=== PATIENT | female | born 1965 | race Caucasian/White ===

== ENCOUNTER 2016-12-26 14:40 | Emergency (ER) | payer BC ==
[~2016-12-26] VITALS: Ht 165.1 cm; Wt 98.0 kg
[~2016-12-26 14:40] MED LIST: ASPI81TA82 PO; CYCL-36 PO; KRIL300C3 PO; NEUR300C PO; PRIL20CA PO; PROM25TA5 PO; REST7.5C PO; ROSU40 PO; SUCR1TAB PO; TRAM100T19 PO; TRAZ50TA4 PO; VITATAB25 PO; XANA0.5T PO
[2016-12-26 14:47] VITALS: BP 152/73; PULSE 81; RESP 17; TEMP 97.8; O2SAT 98
[2016-12-26] MEDS ORDERED: SODIUM CHLOR 0.9% 1000 ML INJ 1,000 ML IV SCH (15:06)
[2016-12-26 15:09] VITALS: RESP 18; O2SAT 98
[2016-12-26] MEDS: SODIUM CHLORIDE 0.9% FLUSH 10 ML FLUSH IVF PRN ×2 (15:14→16:16)
--- NOTE | 2016-12-26 15:32 | PD ---
HPI Chief Complaint: Bleeding Time Seen by Provider: 15:20 Travel History International Travel<30 days: No Contact w/Intl Traveler<30days: No Traveled to known affect area: No History of Present Illness HPI 51 year old female presents to the emergency department for evaluation of rectal /vaginal bleeding that started last night. Patient has history of surgery for occluded radial artery, possible occluded left carotid. She had surgery done by a physician at [facility] last year. She was originally placed on Coumadin after surgery, but states she was unable to get her INR regulated. She then was switched to Xarelto. In August 2015, she had episode of large vaginal bleeding while on Xarelto. She was since taken off of Xarelto. She states that she saw Dr. Rodrigues done here, vascular surgeon, but is now switching to Dr. Méndez. She has not yet seen Dr. Méndez, but that all her paperwork sent to him. She states that she called her vascular surgeon at [facility] who then placed her back on Xarelto approximately 5-6 weeks ago. She states that she started what she thinks was rectal and vaginal bleeding last night. Patient states she had an ultrasound done by Dr. Sharp after last vaginal bleeding and nothing was found. The patient also reports pain behind her left eye that has been ongoing for approximately 2 weeks. She has an appointment to her eye doctor for this. PFSH Past Medical History Hx Anticoagulant Therapy: No (XARELTO) Arthritis: Yes (Hips and lower back ) Asthma: Yes Autoimmune Disease: No Blood Disorders: No Anxiety: Yes Depression: No Heart Rhythm Problems: No Cancer: No Cardiovascular Problems: Yes High Cholesterol: Yes Chemotherapy: No Chest Pain: No Congestive Heart Failure: No COPD: No Cerebrovascular Accident: Yes Diabetes: No Diminished Hearing: No Deep Vein Thrombosis: Yes Endocrine: No Gastrointestinal Disorders: Yes GERD: No Glaucoma: No Genitourinary: No Headaches: No Hepatitis: No Hiatal Hernia: No Hypertension: No Immune Disorder: No Kidney Stones: No Musculoskeletal: Yes (Lump in left wrist in October 2013) Neurologic: Yes Psychiatric: Yes Reproductive: No Respiratory: Yes Immunizations Current: No Migraines: No Myocardial Infarction: No Radiation Therapy: No Renal Failure: No Seizures: Yes (Suffered childhood epilepsy) Sickle Cell Disease: No Sleep Apnea: No Thyroid Disease: No Ulcer: Yes (ulcerative Colitis /GASTROPARESIS) Tetanus Vaccination: > 5 Years Influenza Vaccination: No ?: Not Menopausal: Yes : 4 Para: 3 Miscarriage: 1 : 0 Dilation and Curettage (D&C): Yes Past Surgical History Abdominal Surgery: No AICD: No Arteriovenous Shunt: No Cardiac Surgery: No Coronary Artery Bypass Graft: Yes (x 2 ) Ear Surgery: No Endocrine Surgery: No Eye Surgery: No Genitourinary Surgery: No Gynecologic Surgery: No Insulin Pump: No Joint Replacement: No Neurologic Surgery: No Oral Surgery: Yes (Complete teeth removal in 2007) Pacemaker: No Thoracic Surgery: No Tonsillectomy: Yes Other Surgery: Yes Social History Alcohol Use: No (PT DENIES) Tobacco Use: Yes (1/2 CIG A DAY) Substance Use: No (PT DENIES) Allergies-Medications (Allergen,Severity, Reaction): Coded Allergies: Penicillin (Verified Allergy, Unknown, RASH, 12/26/16) Reported Meds & Prescriptions Reported Meds & Active Scripts Active Reported Trazodone (Trazodone HCl) 100 Mg Tablet 100 Mg PO HS Temazepam 15 Mg Cap 15 Mg PO HS PRN Omeprazole 20 Mg Tab 20 Mg PO DAILY Vitamin D-[address] (Cholecalciferol) 1,000 Unit Tab 1,000 Units PO DAILY Atorvastatin (Atorvastatin Calcium) 20 Mg Tab 20 Mg PO HS Sucralfate 1 Gm Tab 1 Gm PO QID on empty stomach Potassium Chloride ER (Potassium Chloride) 20 Meq Tab 20 Meq PO DAILY Gabapentin 300 Mg Cap 300 Mg PO QID Tizanidine (Tizanidine HCl) 4 Mg Tab 4 Mg PO QID Tigan (Trimethobenzamide HCl) 300 Mg Cap 300 Mg PO TID PRN Aspirin Low Dose (Aspirin) 81 Mg Chew 81 Mg PO DAILY Review of Systems Except as stated in HPI: all other systems reviewed are Neg Physical Exam Narrative GENERAL: Well-nourished, well-developed female patient, afebrile. SKIN: Focused skin assessment warm/dry. HEAD: Normocephalic. Atraumatic. EYES: No scleral icterus. No injection or drainage. NECK: Supple, trachea midline. No JVD or lymphadenopathy. CARDIOVASCULAR: Regular rate and rhythm without murmurs, gallops, or rubs. RESPIRATORY: Breath sounds equal bilaterally. No accessory muscle use. Lungs sounds are clear to auscultation GASTROINTESTINAL: Abdomen soft, non-tender, nondistended. MUSCULOSKELETAL: No cyanosis, or edema. BACK: Nontender without obvious deformity. No CVA tenderness. Patient has blood noted to be some bleeding in her vaginal canal. Unsure if patient is having rectal bleed as blood could be coming from the vaginal and deep into the rectum. This exam was done with nurse at bedside. Data Data Last Documented VS Vital Signs Date Time Temp Pulse Resp B/P Pulse Ox O2 Delivery O2 Flow Rate FiO2 12/26/16 17:00 78 16 148/83 99 Room Air 12/26/16 14:47 97.8 Orders Complete Blood Count With Diff (12/26/16 15:06) Comprehensive Metabolic Panel (12/26/16 15:06) Prothrombin Time / Inr (Pt) (12/26/16 15:06) Act Partial Throm Time (Ptt) (12/26/16 15:06) Urinalysis - C+S If Indicated (12/26/16 15:06) Type And Screen (12/26/16 15:06) Ecg Monitoring (12/26/16 15:06) Iv Access Insert/Monitor (12/26/16 15:06) Oximetry (12/26/16 15:06) Sodium Chlor 0.9% 1000 Ml Inj (Ns 1000 M (12/26/16 15:06) Sodium Chloride 0.9% Flush (Ns Flush) (12/26/16 15:15) Ct Brain W/O Iv Contrast(Rout) (12/26/16 ) Us Pelvis Comp Awning Hanger/Non-Preg (12/26/16 ) Urine Culture (12/26/16 16:30) Labs Laboratory Tests Test 12/26/16 12/26/16 15:10 16:30 White Blood Count 11.4 TH/MM3 Red Blood Count 4.86 MIL/MM3 Hemoglobin 14.6 GM/DL Hematocrit 44.5 % Mean Corpuscular Volume 91.6 FL Mean Corpuscular Hemoglobin 30.0 PG Mean Corpuscular Hemoglobin 32.7 % Concent Red Cell Distribution Width 13.4 % Platelet Count 286 TH/MM3 Mean Platelet Volume 8.9 FL Neutrophils (%) (Auto) 55.8 % Lymphocytes (%) (Auto) 38.5 % Monocytes (%) (Auto) 4.3 % Eosinophils (%) (Auto) 0.8 % Basophils (%) (Auto) 0.6 % Neutrophils # (Auto) 6.4 TH/MM3 Lymphocytes # (Auto) 4.4 TH/MM3 Monocytes # (Auto) 0.5 TH/MM3 Eosinophils # (Auto) 0.1 TH/MM3 Basophils # (Auto) 0.1 TH/MM3 CBC Comment DIFF FINAL Differential Comment Prothrombin Time 11.0 SEC Prothromb Time International 1.0 RATIO Ratio Activated Partial 22.9 SEC Thromboplast Time Blood Type A POSITIVE Antibody Screen NEGATIVE Urine Color RED Urine Turbidity HAZY Urine pH 5.5 Urine Specific [place] 1.022 Urine Protein 30 mg/dL Urine Glucose (UA) NEG mg/dL Urine Ketones NEG mg/dL Urine Occult Blood LARGE Urine Nitrite NEG Urine Bilirubin NEG Urine Urobilinogen LESS THAN 2.0 MG/DL Urine Leukocyte Esterase TRACE Urine RBC /hpf Urine WBC 9 /hpf Urine Squamous Epithelial 2 /hpf Cells Urine Amorphous Sediment RARE Urine Bacteria MANY /hpf Urine Mucus FEW /lpf Microscopic Urinalysis Comment CULTURE INDICATED Sodium Level 143 MEQ/L Potassium Level 3.9 MEQ/L Chloride Level 108 MEQ/L Carbon Dioxide Level 25.4 MEQ/L Anion Gap 10 MEQ/L Blood Urea Nitrogen 7 MG/DL Creatinine 0.64 MG/DL Estimat Glomerular Filtration 97 ML/MIN Rate Random Glucose 91 MG/DL Calcium Level 8.7 MG/DL Total Bilirubin 0.4 MG/DL Aspartate Amino Transf 17 U/L (AST/SGOT) Alanine Aminotransferase 23 U/L (ALT/SGPT) Alkaline Phosphatase 83 U/L Total Protein 7.5 GM/DL Albumin 3.7 GM/DL MDM Medical Decision Making Medical Screen Exam Complete: Yes Emergency Medical Condition: Yes Medical Record Reviewed: Yes Interpretation(s) Pelvic US - No acute disease. CT brain -CONCLUSION: Unremarkable study. Differential Diagnosis coagulopathy vs. intracranial abnormality vs. medication reaction vs. anemia Narrative Course 51-year-old female presents to the emergency department for evaluation of vaginal, possible rectal bleeding that started last night. She was resumed on her Cymbalta approximate 5-6 weeks ago. She reports large vaginal bleeding on Xarelto in August 2015. CBC, CMP, PTT, PTT/INR, UA, type and screen are ordered and pending. CT of the brain and pelvic ultrasound are ordered and pending. My attending physician, Dr. Hernandez, contacted Dr. Méndez who will, and see the patient. Normal saline [address] Méndez was the patient in the ED and stated that Xarelto could be stopped for a short time to control bleeding. CBC shows leukocytosis of 11.4, normal hemoglobin 14.6, hematocrit 44.5. CMP shows no acute abnormality. Coags show no acute abnormality. UA shows large occult blood, trace leukocyte esterase, 9 WBC, culture indicated. CT of the brain is unremarkable. Pelvic US shows no acute disease. I attempted to contact the patient's venetian blind tape cutter, Dr. Sharp, but was unable to get him. I spoke to the OB hospitalist intermission coordinator, Dr. Gibson, who states I should get a hold of Dr. Sharp as that is the patient's venetian blind tape cutter. He states she may need endometrial ablation due to bleeding. I spoke to Dr. Smith, who is intermission coordinator for Dr. Sharp. She states that the patient should comment to the office tomorrow and will most likely need outpatient endometrial ablation. She states that the patient should call first thing in the morning to be seen tomorrow. She states that she will let Dr. Sharp know as well. I discussed the findings with the patient. She will call Dr. Sharp's office in the morning and be seen tomorrow. She is return for any acute worsening of symptoms. I'll discharge patient prescription for Macrobid for UTI. She verbalizes agreement and understanding. The patient was discharged in stable condition with instructions, including return instructions and follow up instructions. Diagnosis Primary Impression: Abnormal vaginal bleeding Additional Impression: Urinary tract infection Qualified Code: N30.01 - Acute cystitis with hematuria Referrals: Temo Sharp MD 1 day Patient Instructions: General Instructions, Urinary Tract Infection in Women ( ED) Additional Instructions: Take antibiotic as directed until gone Call Dr. Sharp's office first thing in the morning. Please let them know that know that you were seen in the emergency department and need a same day appointment. Return to the emergency department for any acute worsening of symptoms. Med/Other Pt SpecificInfo: Prescription(s) given Scripts Nitrofurantoin Monohydrate Macrocrystals (Macrobid)100 Mg [id number] Mg PO BID 7 Days Ref 0 Prov:Muna Archer 12/26/16 Disposition: DISCHARGE HOME Condition: Stable Muna Archer Dec 26, 2016 15:32
[2016-12-26] MEDS ORDERED: ASPI81CH37 PO (15:46)
[2016-12-26] MEDS ORDERED: TIZA4TAB PO (15:46)
[2016-12-26] MEDS ORDERED: VITATAB25 PO (15:46)
[2016-12-26] MEDS ORDERED: GABA300C5 PO (15:46)
[2016-12-26] MEDS ORDERED: SUCR1TAB PO (15:46)
[2016-12-26] MEDS ORDERED: ATOR20TA15 PO (15:46)
[2016-12-26] MEDS ORDERED: TIGA300C2 PO (15:46)
[2016-12-26] MEDS ORDERED: POTA-163 PO (15:46)
[2016-12-26] MEDS ORDERED: OMEP20TA PO (15:47)
[2016-12-26] MEDS ORDERED: TRAZ100T6 PO (15:48)
[2016-12-26] MEDS ORDERED: TEMA15CA PO (15:48)
[2016-12-26 16:06] LABS: AUTOMATED NEUTROPHIL # 6.4 TH/MM3 (1.8-7.7); BASOPHIL # 0.1 TH/MM3 (0-0.2); BASOPHIL % 0.6 % (0.0-2.0); EOSINOPHIL # 0.1 TH/MM3 (0-0.4); EOSINOPHIL % 0.8 % (0.0-4.0); HEMATOCRIT 44.5 % (35.0-46.0); HEMO FLAGS DIFF FINAL; LYMPH % 38.5 % (9.0-44.0); LYMPHOCYTE # 4.4 TH/MM3 (1.0-4.8); MEAN CELL VOLUME 91.6 FL (80.0-100.0); MEAN CORPUSCULAR HGB CONC 32.7 % (32.0-36.0); MONO % 4.3 % (0.0-8.0); NEUT % 55.8 % (16.0-70.0); PLATELET COUNT 286 TH/MM3 (150-450); RED BLOOD COUNT 4.86 MIL/MM3 (4.00-5.30); RED CELL DISTRIBUTION WIDTH 13.4 % (11.6-17.2); WHITE BLOOD COUNT 11.4 TH/MM3 (4.0-11.0)
[2016-12-26 16:37] LABS: APTT (PATIENT) 22.9 SEC (24.3-30.1)
[2016-12-26 16:41] LABS: ALKALINE PHOSPHATASE 83 U/L (45-117); TOTAL BILIRUBIN ADULT 0.4 MG/DL (0.2-1.0)
--- NOTE | 2016-12-26 16:53 | PD.VS.CON ---
History of Present Illness Chief Complaint: vaginal bleeding and systemic anticoagulation Consult Requested by: Dr. Hernandez, ED History of Present Illness 51 yo female previously well known to me with a history of LUE ischemia of unclear etiology. While at [facility], she underwent a L carotid-brachial bypass using GSV on 04/07/14 and then a graft thrombectomy and jump graft to the ulnar artery using GSV 4 days later. Ultimately al of this failed and an angiogram on Jul 07, 2014 showed patent L SCA to the vertebral artery, but then only collaterals until the proximal forearm but 3 vessels in distal forearm. From an arm standpoint, she has intermittent pain but no motor dysfunction and it sounds like no true rest pain. Her last WBI was 0.5. Her discomfort is controlled with neurontin. Most recently, she has had significant vaginal bleeding and this is the reason she presented to the ED. I was called by the ED to ask about cessation of anticoagulation. Past/Family/Social History Past Medical History likely hypercoagulable state B12 deficiency ? vision loss (not CVA) Past Surgical History L UE bypasses as above Social History nonsmoker Family History [place] Home Medications Reported Medications Trazodone 100 Mg [id number] Mg PO HS #30 TAB Ref 0 12/26/16 Temazepam 15 Mg Cap15 Mg PO HS PRN (INSOMNIA) #30 CAP Ref 0 12/26/16 Omeprazole 20 Mg Tab20 Mg PO DAILY #30 TAB Ref 0 12/26/16 Cholecalciferol (Vitamin D-[address])1,000 Unit Tab1,000 Units PO DAILY # 1 BOTTLE Ref 0 12/26/16 Atorvastatin 20 Mg Tab20 Mg PO HS #30 TAB Ref 0 12/26/16 Sucralfate 1 Gm Tab1 Gm PO QID #120 TAB Ref 0 on empty stomach 12/26/16 Potassium Chloride ER 20 Meq Tab20 Meq PO DAILY #30 TAB Ref 0 12/26/16 Gabapentin 300 Mg [id number] Mg PO QID #90 CAP Ref 0 12/26/16 Tizanidine 4 Mg Tab4 Mg PO QID Ref 0 12/26/16 Trimethobenzamide (Tigan)300 Mg [id number] Mg PO TID PRN (NAUSEA OR VOMITING) Ref 0 12/26/16 Aspirin (Aspirin Low Dose)81 Mg Chew81 Mg PO DAILY Ref 0 12/26/16 Coded Allergies: Penicillin (Verified Allergy, Unknown, RASH, 12/26/16) Review of Systems Eyes: COMPLAINS OF: Blurred vision, Vision loss Musculoskeletal: COMPLAINS OF: Joint Swelling Psychiatric: COMPLAINS OF: Anxiety Physical Exam Vitals/I&O Date Time Temp Pulse Resp B/P Pulse Ox O2 Delivery O2 Flow Rate FiO2 12/26/16 15:09 18 98 Room Air 12/26/16 15:05 87 18 98 Room Air 12/26/16 14:47 97.8 81 17 152/73 98 Neuro: Awake, alert, mild distress from anxiety HEENT: NC/AT Neck: no JVD; L neck incision healed nicely Heart: reg rate Lungs: nonlabored breathing Abdomen: NT Vascular: no palpable L UE pulses but hand warm Extremities: good motor strength L UE incisions well healed. No tissue loss Laboratory Tests Test 12/26/16 15:10 White Blood Count 11.4 Red Blood Count 4.86 Hemoglobin 14.6 Hematocrit 44.5 Mean Corpuscular Volume 91.6 Mean Corpuscular Hemoglobin 30.0 Mean Corpuscular Hemoglobin 32.7 Concent Red Cell Distribution Width 13.4 Platelet Count 286 Mean Platelet Volume 8.9 Neutrophils (%) (Auto) 55.8 Lymphocytes (%) (Auto) 38.5 Monocytes (%) (Auto) 4.3 Eosinophils (%) (Auto) 0.8 Basophils (%) (Auto) 0.6 Neutrophils # (Auto) 6.4 Lymphocytes # (Auto) 4.4 Monocytes # (Auto) 0.5 Eosinophils # (Auto) 0.1 Basophils # (Auto) 0.1 CBC Comment DIFF FINAL Differential Comment I reviewed her angiogram from Jun 2014. 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 However, she has no symptoms that would warrant revascularization. She however needs lifelong anticoagulation as well as antiplatelet therapy. I would recommend coumadin and 81mg ASA, but she had some trouble with coumadin so would use Xarelto and ASA. Given bleeding episodes, however, she should have her anticoagulation held and vaginal bleeding treated and then re-institution of anticoagulation as soon as possible. Moustapha Méndez MD FACS VI back tender paper machine [facility]. [phone] Moustapha Méndez MD Dec 26, 2016 16:53
[2016-12-26 17:00] VITALS: BP 148/83; PULSE 78; RESP 16; O2SAT 99
[2016-12-26 17:07] LABS: BACTERIA, URINE MANY /hpf; BLOOD, URINE LARGE (NEG); COMMENT (UR) CULTURE INDICATED; CULTURE IF INDICATED CULTURE INDICATED; GLUCOSE,URINE NEG (NEG); KETONE, URINE NEG (NEG); MUCUS URINE FEW /lpf (OCC); NITRITE,URINE NEG (NEG); PH, URINE 5.5 (5.0-8.5); SQUAMOUS EPITHELIAL CELL URINE 2 /hpf (0-5)
--- NOTE | 2016-12-26 17:08 | RADRPT ---
EXAM DATE/TIME: 12/26/2016 16:08 [facility] COMPARISON: No previous studies available for comparison. INDICATIONS : Vaginal bleeding. MEDICAL HISTORY : Stroke. Hypercholesterolemia. DVT. Ulcer. Gastroparesis. SURGICAL HISTORY : Tonsillectomy. CABG. D&C. ENCOUNTER: Initial ACUITY: 2 days PAIN SCORE: 7/10 LOCATION: Bilateral pelvis MEASUREMENTS: UTERUS: 8.2 x 3.3 x 4.3 cm ENDOMETRIAL STRIPE: 7 mm RIGHT OVARY: 1.9 x 1.2 x 1.0 cm LEFT OVARY: cm Non visualized FINDINGS: UTERUS: The myometrium has homogeneous echotexture without mass. 3 tiny cysts are seen in bone and endometriu m. RIGHT OVARY: Ovary contains no mass or significant cystic lesion. LEFT OVARY: Ovary contains no mass or significant cystic lesion. MISCELLANEOUS: No free fluid. CONCLUSION: No acute disease. Tarik Keller Jr., MD on December 26, 2016 at 17:04 Board Certified Radiologist. This report was verified electronically.
[2016-12-26 17:14] LABS: URINE COLOR RED (YELLW/STRAW)
[2016-12-26 17:28] LABS: ALT (GPT) 23 U/L (10-53); ANION GAP 10 MEQ/L (5-15); AST (GOT) 17 U/L (15-37); BICARBONATE 25.4 MEQ/L (21.0-32.0); BLOOD UREA NITROGEN 7 MG/DL (7-18); CHLORIDE 108 MEQ/L (98-107); GLOMERULAR FILTRATION RATE 97 ML/MIN (>89); POTASSIUM 3.9 MEQ/L (3.5-5.1); SODIUM (NA) 143 MEQ/L (136-145)
--- NOTE | 2016-12-26 18:40 | RADRPT ---
EXAM DATE/TIME: 12/26/2016 18:25 [facility] COMPARISON: CT BRAIN W/O CONTRAST, October 25, 2015, 14:02. INDICATIONS : Pressure behind right eye, cephalgia. RADIATION DOSE: 56.35 CTDIvol (mGy) MEDICAL HISTORY : Seizures. Cardiovascular disease SURGICAL HISTORY : CABG Skull fracture 40 years ago. ENCOUNTER: Initial ACUITY: 1 day PAIN SCALE: 7/10 LOCATION: Bilateral cranial TECHNIQUE: Multiple contiguous axial images were obtained of the head. Using automated exposure control and adj ustment of the mA and/or kV according to patient size, radiation dose was kept as low as reasonably a chievable to obtain optimal diagnostic quality images. DICOM format image data is available electro nically for review and comparison. FINDINGS: There is no evidence for intracranial hemorrhage, mass effect, mass lesions, edema, or extra-axial fl uid collections. The visualized bony structures appear intact. The ventricles are normal size for t he patient's age. There are no signs of acute infarction for technique. CONCLUSION: Unremarkable study. Bessie Ibarra MD on December 26, 2016 at 18:37 Board Certified Radiologist. This report was verified electronically.
[2016-12-26] MEDS ORDERED: MACR100C2 PO (19:06)
--- NOTE | 2016-12-30 14:42 | PD ---
Physical Exam Date Seen by Provider: Dec 26, 2016 Narrative 51-year-old female came to the emergency room with history of vaginal and questionable rectal bleed. Patient requires to be on Xarelto for her left upper extremity blood clots. She has had multiple surgeries to reconstruct the artery in her left upper extremity as well as left carotid. She was seen by the vascular surgeon from [place]. She is suppose to see the vascular surgeon Dr. Méndez in this area but hasn't seen him yet. Meanwhile she was started on Xarelto and soon after that she started having the bleeding. Patient is seen by the nurse practitioner and I'm supervising her. I went to see the patient and noticed that most of her bleeding was from the vaginal area. Bleeding was moderate in amount. I asked the nurse practitioner to discuss the case with the vascular surgeon who happened to be Dr. Méndez psychologist personnel. I actually spoke with him on the phone and explained the situation to him. He came down to see the patient and recognized the patient from his previous association at [facility] vascular surgery Department. He recommended to stop the Xarelto for the time being until the bleeding is under control. I've asked the nurse practitioner to speak with SOCIAL MEDIA CAMPAIGN MANAGER and get their recommendation. Patient does have a SOCIAL MEDIA CAMPAIGN MANAGER specialist. Given the fact that the patient is hemodynamically stable, if her blood test results are within normal limits, given her stable hemodynamic status if SOCIAL MEDIA CAMPAIGN MANAGER is comfortable to have her be discharged patient will be followed up by them as an outpatient. As per Dr. Méndez ration does have a bad vasculopathy and eventually would need to be on Xarelto. SOCIAL MEDIA CAMPAIGN MANAGER will have to make a definitive plan so that the bleeding doesn't recur once patient is started back on Xarelto. Data Data Last Documented VS Vital Signs Date Time Temp Pulse Resp B/P Pulse Ox O2 Delivery O2 Flow Rate FiO2 12/26/16 17:00 78 16 148/83 99 Room Air 12/26/16 14:47 97.8 Orders Complete Blood Count With Diff (12/26/16 15:06) Comprehensive Metabolic Panel (12/26/16 15:06) Prothrombin Time / Inr (Pt) (12/26/16 15:06) Act Partial Throm Time (Ptt) (12/26/16 15:06) Urinalysis - C+S If Indicated (12/26/16 15:06) Type And Screen (12/26/16 15:06) Ecg Monitoring (12/26/16 15:06) Iv Access Insert/Monitor (12/26/16 15:06) Oximetry (12/26/16 15:06) Sodium Chlor 0.9% 1000 Ml Inj (Ns 1000 M (12/26/16 15:06) Sodium Chloride 0.9% Flush (Ns Flush) (12/26/16 15:15) Ct Brain W/O Iv Contrast(Rout) (12/26/16 ) Us Pelvis Comp Diesel Engine Specialist/Non-Preg (12/26/16 ) Urine Culture (12/26/16 16:30) Us Pelvis Comp W Transvaginal (12/26/16 ) Labs Laboratory Tests Test 12/26/16 12/26/16 15:10 16:30 White Blood Count 11.4 TH/MM3 Red Blood Count 4.86 MIL/MM3 Hemoglobin 14.6 GM/DL Hematocrit 44.5 % Mean Corpuscular Volume 91.6 FL Mean Corpuscular Hemoglobin 30.0 PG Mean Corpuscular Hemoglobin 32.7 % Concent Red Cell Distribution Width 13.4 % Platelet Count 286 TH/MM3 Mean Platelet Volume 8.9 FL Neutrophils (%) (Auto) 55.8 % Lymphocytes (%) (Auto) 38.5 % Monocytes (%) (Auto) 4.3 % Eosinophils (%) (Auto) 0.8 % Basophils (%) (Auto) 0.6 % Neutrophils # (Auto) 6.4 TH/MM3 Lymphocytes # (Auto) 4.4 TH/MM3 Monocytes # (Auto) 0.5 TH/MM3 Eosinophils # (Auto) 0.1 TH/MM3 Basophils # (Auto) 0.1 TH/MM3 CBC Comment DIFF FINAL Differential Comment Prothrombin Time 11.0 SEC Prothromb Time International 1.0 RATIO Ratio Activated Partial 22.9 SEC Thromboplast Time Blood Type A POSITIVE Antibody Screen NEGATIVE Urine Color RED Urine Turbidity HAZY Urine pH 5.5 Urine Specific [place] 1.022 Urine Protein 30 mg/dL Urine Glucose (UA) NEG mg/dL Urine Ketones NEG mg/dL Urine Occult Blood LARGE Urine Nitrite NEG Urine Bilirubin NEG Urine Urobilinogen LESS THAN 2.0 MG/DL Urine Leukocyte Esterase TRACE Urine RBC /hpf Urine WBC 9 /hpf Urine Squamous Epithelial 2 /hpf Cells Urine Amorphous Sediment RARE Urine Bacteria MANY /hpf Urine Mucus FEW /lpf Microscopic Urinalysis Comment CULTURE INDICATED Sodium Level 143 MEQ/L Potassium Level 3.9 MEQ/L Chloride Level 108 MEQ/L Carbon Dioxide Level 25.4 MEQ/L Anion Gap 10 MEQ/L Blood Urea Nitrogen 7 MG/DL Creatinine 0.64 MG/DL Estimat Glomerular Filtration 97 ML/MIN Rate Random Glucose 91 MG/DL Calcium Level 8.7 MG/DL Total Bilirubin 0.4 MG/DL Aspartate Amino Transf 17 U/L (AST/SGOT) Alanine Aminotransferase 23 U/L (ALT/SGPT) Alkaline Phosphatase 83 U/L Total Protein 7.5 GM/DL Albumin 3.7 GM/DL MDM Supervised Visit with JANNETH: Yes Diagnosis Primary Impression: Abnormal vaginal bleeding Additional Impression: Urinary tract infection Qualified Code: N30.01 - Acute cystitis with hematuria Referrals: Temo Sharp MD 1 day Patient Instructions: General Instructions, Urinary Tract Infection in Women ( ED) Departure Forms: Tests/Procedures Additional Instruction: Take antibiotic as directed until gone Call Dr. Sharp's office first thing in the morning. Please let them know that know that you were seen in the emergency department and need a same day appointment. Return to the emergency department for any acute worsening of symptoms. Scripts Nitrofurantoin Monohydrate Macrocrystals (Macrobid)100 Mg [id number] Mg PO BID 7 Days Ref 0 Prov:Muna Archer 12/26/16 Disposition: 01 DISCHARGE HOME Condition: Stable Chencho Hernandez MD Dec 30, 2016 14:42
== END 2016-12-26 19:34 | disposition home or self-care (01) ==
LOC: NEPE 14:40
DX: N93.9 Abnormal uterine and vaginal bleeding, unspecified (principal); N39.0 Urinary tract infection, site not specified; J45.909 Unspecified asthma, uncomplicated; F41.9 Anxiety disorder, unspecified; E78.00 Pure hypercholesterolemia, unspecified; K31.84 Gastroparesis; Z79.01 Long term (current) use of anticoagulants; Z86.73 Personal history of transient ischemic attack (TIA), and cerebral infarction without residual deficits; Z86.718 Personal history of other venous thrombosis and embolism
CPT/HCPCS: 70450; 76830; 76856; 80053; 81001; 85025; 85610; 85730; 86850; 86900; 86901; 87086; 96360; 99285; J7030

== ENCOUNTER → 2017-01-01 | Day surgery (SDC) | payer BC ==
[~2017-01-01] MED LIST changes: +ASPI81CH37 PO; -ASPI81TA82 PO; +ATOR20TA15 PO; +CLINDAMYCIN PHOS 600 MG/4 ML VIAL ONE; -CYCL-36 PO; +GABA300C5 PO; +KETOROLAC TROMETHAMINE 30 MG/ML (IVP) VIAL IV PUSH ONE; -KRIL300C3 PO; +LACTATED RINGER'S 1000 ML INJ 1,000 ML ONE; +MACR100C2 PO; +MIDAZOLAM HCL 2 MG/2 ML VIAL ONE; +MORPHINE SULFATE 4 MG/ML INJ ONE; -NEUR300C PO; +OMEP20TA PO; +ONDANSETRON HCL 4 MG/2 ML VIAL IV PUSH ONE; +POTA-163 PO; -PRIL20CA PO; -PROM25TA5 PO; +PROPOFOL 200 MG/20 ML AMP IV ONE; -REST7.5C PO; -ROSU40 PO; +SODIUM CHLORIDE 0.9% SOLN 100 ML BAG IV ONE; +TEMA15CA PO; +TIGA300C2 PO; +TIZA4TAB PO; -TRAM100T19 PO; +TRAZ100T6 PO; -TRAZ50TA4 PO; -XANA0.5T PO
--- NOTE | 2017-01-01 13:27 | MP ---
cc: RENY ABBOTT DINA M. DATE OF SURGERY 01/01/2017 DATE OF 1965 PREOPERATIVE DIAGNOSIS Perimenopausal menorrhagia PROCEDURE Exam under anesthesia, hysteroscopy with dilatation curettage and endometrial ablation with NovaSure. POSTOPERATIVE DIAGNOSIS Perimenopausal menorrhagia ANESTHESIA General with LMA ESTIMATED BLOOD LOSS None PATHOLOGY SPECIMENS Included endocervical and endometrial curettings. OPERATIVE FINDINGS The patient had atrophic appearing endometrial cavity that was symmetrical. No focal abnormality. No mass, no lesion. No perforation. INDICATIONS FOR PROCEDURE Patient with a significant history of peripheral vascular disease requiring anticoagulation. Recent use of Xarelto resulted in significant heavy menstrual bleeding. The patient stopped medication and was recommended for a diagnosis hysteroscopy, hysteroscopy and endometrial ablation using the NovaSure. PROCEDURE The patient received Ancef 2 grams prophylactically. She underwent general anesthesia with LMA placement. She was carefully positioned in the dorsolithotomy position using candy-cane stirrups. She had sequential placed on the lower extremities for VTE prophylaxis. She was prepped and draped, time-out was conducted and agreed by all present in the room. Simple exam revealed a midline cervix. There was no bleeding noted. A single-tooth tenaculum is used to secure the anterior cervical lip. Uterine sound was placed gently to about 8-1/2 cm. The cervix was then dilated to accommodate a 5 mm rigid hysteroscope using normal saline. The findings were described above. Simple curettage of the endometrium was then performed without difficulty and then the NovaSure device was utilized. Measurements were set at 6.0 and 3.5. The energy generated was 116 santos. Complete electrodesiccation was accomplished without difficulty. The instrument was removed at the end of its cycle and then reinsertion of the hysteroscope revealed a complete intact cavity that was electrodesiccated. No active bleeding or perforation. At the completion of the case, the patient was stable. She was taken to the recovery room extubated on room air. Final count was correct. MD ARTIS Sampson/SCOTT /11:44 AM /1:20 PM
== END | disposition home or self-care (01) ==
LOC: ESDC 09:58
PROVIDERS: ATTEND Obstetrics & Gynecology
DX: N92.4 Excessive bleeding in the premenopausal period (principal)
CPT/HCPCS: 00952; 58563; 88305; J1885; J2250; J2270; J2405; J3010; J7120

== ENCOUNTER 2017-04-07 11:17 | Emergency (ER) | payer BC ==
[~2017-04-07] VITALS: Ht 165.1 cm; Wt 96.0 kg
[~2017-04-07 11:17] MED LIST changes: -CLINDAMYCIN PHOS 600 MG/4 ML VIAL ONE; -KETOROLAC TROMETHAMINE 30 MG/ML (IVP) VIAL IV PUSH ONE; -LACTATED RINGER'S 1000 ML INJ 1,000 ML ONE; -MIDAZOLAM HCL 2 MG/2 ML VIAL ONE; -MORPHINE SULFATE 4 MG/ML INJ ONE; -ONDANSETRON HCL 4 MG/2 ML VIAL IV PUSH ONE; -PROPOFOL 200 MG/20 ML AMP IV ONE; -SODIUM CHLORIDE 0.9% SOLN 100 ML BAG IV ONE
[2017-04-07 11:27] VITALS: BP 166/88; PULSE 104; RESP 20; TEMP 97.7; O2SAT 97
[2017-04-07] MEDS ORDERED: MORPHINE SULFATE 4 MG/ML INJ IV PUSH ONE ×2 (11:45→15:30)
[2017-04-07] MEDS ORDERED: SODIUM CHLORIDE 0.9% FLUSH 10 ML FLUSH IVF PRN (11:45)
--- NOTE | 2017-04-07 11:48 | PD ---
HPI Chief Complaint: Musculoskeletal Complaint Time Seen by Provider: 11:35 Travel History International Travel<30 days: No Contact w/Intl Traveler<30days: No Traveled to known affect area: No History of Present Illness HPI This is a 51-year-old female with history of thoracic outlet syndrome with resultant vascular insufficiency in the left arm, underwent revascularization procedures in 2013 at [facility]. She presents via EMS for evaluation of headache, left arm numbness/pain and chest pain. She reports that for the past 5 days she 's had increased pain/numbness in her left arm. She is currently on Neurontin for this pain but it doesn't seem to be helping. For the past day she's had a generalized head pressure and over the past several minutes she has had a substernal chest pressure. Symptoms are constant, no aggravating or relieving factors. She denies any acute weakness, acute blurred vision but she endorses decreased chronic peripheral vision loss. She denies slurred speech or facial droop. Her vascular surgeon is Dr. Méndez. No other complaints at this time. PFSH Past Medical History Hx Anticoagulant Therapy: No (XARELTO) Arthritis: Yes (Hips and lower back ) Asthma: Yes Autoimmune Disease: No Blood Disorders: No Anxiety: Yes Depression: No Heart Rhythm Problems: No Cancer: No Cardiovascular Problems: Yes High Cholesterol: Yes Chemotherapy: No Chest Pain: No Congestive Heart Failure: No COPD: No Cerebrovascular Accident: Yes Diabetes: No Diminished Hearing: No Deep Vein Thrombosis: Yes Endocrine: No Gastrointestinal Disorders: Yes GERD: No Glaucoma: No Genitourinary: No Headaches: No Hepatitis: No Hiatal Hernia: No Hypertension: No Immune Disorder: No Implanted Vascular Access Dvce: No Kidney Stones: No Musculoskeletal: Yes (Lump in left wrist in October 2013) Neurologic: Yes Psychiatric: Yes Reproductive: No Respiratory: Yes Immunizations Current: No Migraines: No Myocardial Infarction: No Radiation Therapy: No Renal Failure: No Seizures: Yes (Suffered childhood epilepsy) Sickle Cell Disease: No Sleep Apnea: No Thyroid Disease: No Ulcer: Yes (ulcerative Colitis /GASTROPARESIS) ?: Not Menopausal: Yes : 4 Para: 3 Miscarriage: 1 : 0 Dilation and Curettage (D&C): Yes Past Surgical History Abdominal Surgery: No AICD: No Arteriovenous Shunt: No Cardiac Surgery: No Coronary Artery Bypass Graft: Yes (x 2 ) Ear Surgery: No Endocrine Surgery: No Eye Surgery: No Genitourinary Surgery: No Gynecologic Surgery: No Hysterectomy: No Insulin Pump: No Joint Replacement: No Neurologic Surgery: No Oral Surgery: Yes (Complete teeth removal in 2007) Pacemaker: No Thoracic Surgery: No Tonsillectomy: Yes Other Surgery: Yes Social History Alcohol Use: No (PT DENIES) Tobacco Use: Yes (1/2 CIG A DAY) Substance Use: No (PT DENIES) Allergies-Medications (Allergen,Severity, Reaction): Coded Allergies: penicillin G (Unverified Allergy, Unknown, RASH, 01/28/17) Reported Meds & Prescriptions Reported Meds & Active Scripts Active Phenergan (Promethazine HCl) 25 Mg Tablet 25 Mg PO Q6H PRN Xanax (Alprazolam) 0.5 Mg Tab 0.5 Mg PO Q8H PRN Lortab (Hydrocodone-Acetaminophen) 5-325 Mg Tab 1 Tab PO Q6H PRN Macrobid (Nitrofurantoin Monoh/Nitrofur Macro) 100 Mg Cap 100 Mg PO BID 7 Days Reported Trazodone (Trazodone HCl) 100 Mg Tablet 100 Mg PO HS Temazepam 15 Mg Cap 15 Mg PO HS PRN Omeprazole 20 Mg Tab 20 Mg PO DAILY Vitamin D-[address] (Cholecalciferol) 1,000 Unit Tab 1,000 Units PO DAILY Atorvastatin (Atorvastatin Calcium) 20 Mg Tab 20 Mg PO HS Sucralfate 1 Gm Tab 1 Gm PO QID on empty stomach Potassium Chloride ER (Potassium Chloride) 20 Meq Tab 20 Meq PO DAILY Gabapentin 300 Mg Cap 300 Mg PO QID Tizanidine (Tizanidine HCl) 4 Mg Tab 4 Mg PO QID Tigan (Trimethobenzamide HCl) 300 Mg Cap 300 Mg PO TID PRN Aspirin Low Dose (Aspirin) 81 Mg Chew 81 Mg PO DAILY Review of Systems Except as stated in HPI: all other systems reviewed are Neg Physical Exam Narrative GENERAL: This is a well-developed well-nourished anxious appearing female. SKIN: Warm and dry. Old surgical scar noted to the left arm. HEAD: Atraumatic. Normocephalic. EYES: Pupils equal and round. No scleral icterus. No injection or drainage. ENT: No nasal bleeding or discharge. Mucous membranes pink and moist. NECK: Trachea midline. No JVD. CARDIOVASCULAR: Regular rate and rhythm. No murmur appreciated. RESPIRATORY: No accessory muscle use. Clear to auscultation. Breath sounds equal bilaterally. GASTROINTESTINAL: Abdomen soft, non-tender, nondistended. Hepatic and splenic margins not palpable. MUSCULOSKELETAL: No obvious deformities. 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 Unable to palpate left upper extremity pulses however capillary refill is less than 2 seconds in all digits of the left hand. NEUROLOGICAL: Awake and alert. No obvious cranial nerve deficits. Motor grossly within normal limits. Normal speech. PSYCHIATRIC: Appropriate mood and affect; insight and judgment normal. Data Data Last Documented VS Vital Signs Date Time Temp Pulse Resp B/P (MAP) Pulse Ox O2 Delivery O2 Flow Rate FiO2 04/07/17 12:43 98 04/07/17 12:43 22 98 Room Air 04/07/17 11:27 97.7 166/88 (114) Orders Orders Electrocardiogram (04/07/17 11:43) Basic Metabolic Panel (Bmp) (04/07/17 11:43) Ckmb (Isoenzyme) Profile (04/07/17 11:43) Complete Blood Count With Diff (04/07/17 11:43) Magnesium (Mg) (04/07/17 11:43) Prothrombin Time / Inr (Pt) (04/07/17 11:43) Act Partial Throm Time (Ptt) (04/07/17 11:43) Troponin I (04/07/17 11:43) Chest, Single Ap (04/07/17 11:43) Ecg Monitoring (04/07/17 11:43) Bilateral Bp Monitoring (04/07/17 11:43) Iv Access Insert/Monitor (04/07/17 11:43) Oximetry (04/07/17 11:43) Oxygen Administration (04/07/17 11:43) Sodium Chloride 0.9% Flush (Ns Flush) (04/07/17 11:45) Ct Brain W/O Iv Contrast(Rout) (04/07/17 ) Morphine Inj (Morphine Inj) (04/07/17 11:45) Cta Up Extrem W Iv Cont W 3d (04/07/17 ) Cta Neck W Iv Contrast W 3d (04/07/17 ) Consult Vascular Surgery (04/07/17 ) (Hub Use Only)Inp Phy Cons/Ref (04/07/17 ) CKMB (04/07/17 12:00) CKMB% (04/07/17 12:00) Iohexol 350 Inj (Omnipaque 350 Inj) (04/07/17 14:21) Ondansetron Inj (Zofran Inj) (04/07/17 15:15) Morphine Inj (Morphine Inj) (04/07/17 15:30) Lorazepam Inj (Ativan Inj) (04/07/17 16:15) Labs Laboratory Tests Test 04/07/17 12:00 White Blood Count 10.9 TH/MM3 Red Blood Count 4.80 MIL/MM3 Hemoglobin 14.8 GM/DL Hematocrit 43.4 % Mean Corpuscular Volume 90.4 FL Mean Corpuscular Hemoglobin 30.8 PG Mean Corpuscular Hemoglobin Concent 34.1 % Red Cell Distribution Width 13.4 % Platelet Count 334 TH/MM3 Mean Platelet Volume 8.6 FL Neutrophils (%) (Auto) 48.2 % Lymphocytes (%) (Auto) 46.7 % Monocytes (%) (Auto) 2.7 % Eosinophils (%) (Auto) 1.3 % Basophils (%) (Auto) 1.1 % Neutrophils # (Auto) 5.3 TH/MM3 Lymphocytes # (Auto) 5.1 TH/MM3 Monocytes # (Auto) 0.3 TH/MM3 Eosinophils # (Auto) 0.1 TH/MM3 Basophils # (Auto) 0.1 TH/MM3 CBC Comment DIFF FINAL Differential Comment Prothrombin Time 9.7 SEC Prothromb Time International Ratio 0.9 RATIO Activated Partial Thromboplast Time 24.8 SEC Blood Urea Nitrogen 6 MG/DL Creatinine 0.51 MG/DL Random Glucose 92 MG/DL Calcium Level 8.9 MG/DL Magnesium Level 2.3 MG/DL Sodium Level 141 MEQ/L Potassium Level 4.7 MEQ/L Chloride Level 108 MEQ/L Carbon Dioxide Level 25.5 MEQ/L Anion Gap 8 MEQ/L Estimat Glomerular Filtration Rate 127 ML/MIN Total Creatine Kinase 161 U/L Creatine Kinase MB 0.8 NG/ML Troponin I LESS THAN 0.02 NG/ML MDM Medical Decision Making Medical Screen Exam Complete: Yes Emergency Medical Condition: Yes Medical Record Reviewed: Yes Differential Diagnosis Peripheral neuropathy, radiculopathy, arterial occlusion, ACS Narrative Course I discussed the case with the patient's vascular surgeon Dr. Méndez who will come and see the patient. He recommends CTA of the neck and left upper extremity. IV will be established, the patient was placed on ECG monitoring pulse oximetry. The patient will be given morphine. Basic lab work, chest x- ray been ordered. The patient's lab work and imaging studies have been reviewed. CTA of the neck reveals CONCLUSION: 1. 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 Patent left vertebral artery with mild residual mural thrombus in the proximal left subclavian artery. 2. New focal saccular aneurysm versus ulcerated plaque in the proximal left common carotid artery. 3. Redemonstration of critical stenosis versus focal occlusion of the right external carotid origin. 4. No hemodynamically significant internal carotid stenosis. CONCLUSION: 1. 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 There is reconstitution of the brachial artery that reoccludes distally. Runoff to the hand is predominantly via the ulnar artery. I discussed results of the CTA imaging with Dr. Méndez who evaluated the images and will follow up with the patient in the office, feels this this is an exacerbation of her neuropathic pain. The patient is quite anxious in regards to her symptomology and discharged with a short course of Xanax as well as Lortab, Phenergan, likely she would benefit from outpatient pain management follow-up. Diagnosis Primary Impression: Left arm pain Referrals: Moustapha Méndez MD Med/Other Pt SpecificInfo: Prescription(s) given Scripts Promethazine (Phenergan) 25 Mg Tablet 25 MG PO Q6H Y for NAUSEA OR VOMITING, #15 TAB 0 Refills Prov: Donn Salas MD 04/07/17 Alprazolam (Xanax) 0.5 Mg Tab 0.5 MG PO Q8H Y for ANXIETY, #15 TAB 0 Refills Prov: Donn Salas MD 04/07/17 Hydrocodone-Acetaminophen (Lortab) 5-325 Mg Tab 1 TAB PO Q6H Y for PAIN, #15 TAB 0 Refills Prov: Donn Salas MD 04/07/17 Disposition: 01 DISCHARGE HOME Condition: Stable Joaquin Montano Apr 07, 2017 11:48
--- NOTE | 2017-04-07 12:12 | RADRPT ---
EXAM DATE/TIME: 04/07/2017 11:54 [facility] COMPARISON: CHEST SINGLE AP, October 25, 2015, 13:38. INDICATIONS : Chest pain, left side numbness MEDICAL HISTORY : Stroke. SURGICAL HISTORY : None. ENCOUNTER: Initial ACUITY: 1 day PAIN SCORE: 6/10 LOCATION: Bilateral chest FINDINGS: A single view of the chest demonstrates the lungs to be symmetrically aerated without evidence of mas s, infiltrate or effusion. The cardiomediastinal contours are unremarkable. Osseous structures are intact. CONCLUSION: No acute disease. Huseyin Loja MD on April 07, 2017 at 12:10 Board Certified Radiologist. This report was verified electronically.
[2017-04-07 12:43] VITALS: PULSE 96; PULSE 98; RESP 22; O2SAT 98
[2017-04-07 12:51] LABS: AUTOMATED NEUTROPHIL # 5.3 TH/MM3 (1.8-7.7); BASOPHIL # 0.1 TH/MM3 (0-0.2); BASOPHIL % 1.1 % (0.0-2.0); EOSINOPHIL # 0.1 TH/MM3 (0-0.4); EOSINOPHIL % 1.3 % (0.0-4.0); HEMATOCRIT 43.4 % (35.0-46.0); HEMOGLOBIN 14.8 GM/DL (11.6-15.3); LYMPH % 46.7 % (9.0-44.0); LYMPHOCYTE # 5.1 TH/MM3 (1.0-4.8); MEAN CELL VOLUME 90.4 FL (80.0-100.0); MEAN CORPUSCULAR HEMOGLOBIN 30.8 PG (27.0-34.0); MEAN CORPUSCULAR HGB CONC 34.1 % (32.0-36.0); MEAN PLATELET VOLUME 8.6 FL (7.0-11.0); MONO % 2.7 % (0.0-8.0); MONOCYTE # 0.3 TH/MM3 (0-0.9); NEUT % 48.2 % (16.0-70.0); PLATELET COUNT 334 TH/MM3 (150-450); RED CELL DISTRIBUTION WIDTH 13.4 % (11.6-17.2); WHITE BLOOD COUNT 10.9 TH/MM3 (4.0-11.0)
[2017-04-07 13:05] LABS: INTERNATIONAL NORMALIZED RATIO 0.9 RATIO; PROTHROMBIN TIME - PATIENT 9.7 SEC (9.8-11.6)
[2017-04-07 13:30] LABS: BICARBONATE 25.5 MEQ/L (21.0-32.0); CALCIUM 8.9 MG/DL (8.5-10.1); CHLORIDE 108 MEQ/L (98-107); CREATININE 0.51 MG/DL (0.50-1.00); GLOMERULAR FILTRATION RATE 127 ML/MIN (>89); GLUCOSE,RANDOM 92 MG/DL (74-106); MAGNESIUM 2.3 MG/DL (1.5-2.5); SODIUM (NA) 141 MEQ/L (136-145); TROPONIN I LESS THAN 0.02 NG/ML (0.02-0.05)
[2017-04-07 13:31] LABS: BLOOD UREA NITROGEN 6 MG/DL (7-18)
[2017-04-07] MEDS ORDERED: IOHEXOL 350 MG/ML 10 ML VIAL (for RAD DIAG) IVCONTRAST ONE (14:21)
--- NOTE | 2017-04-07 14:33 | RADRPT ---
EXAM DATE/TIME: 04/07/2017 14:05 [facility] COMPARISON: CT BRAIN W/O CONTRAST, December 26, 2016, 18:25. INDICATIONS : Cephalgia today. RADIATION DOSE: 56.35 CTDIvol (mGy) MEDICAL HISTORY : deep vein thrombosis SURGICAL HISTORY : left arm surgery ENCOUNTER: Initial ACUITY: 1 day PAIN SCALE: 7/10 LOCATION: Bilateral head TECHNIQUE: Multiple contiguous axial images were obtained of the head. Using automated exposure control and adj ustment of the mA and/or kV according to patient size, radiation dose was kept as low as reasonably a chievable to obtain optimal diagnostic quality images. DICOM format image data is available electro nically for review and comparison. FINDINGS: CEREBRUM: The ventricles are normal for age. No evidence of midline shift, mass lesion, hemorrhage or acute in farction. No extra-axial fluid collections are seen. POSTERIOR FOSSA: Old lacunar and cortical infarcts in the left cerebellar hemisphere. EXTRACRANIAL: The visualized portion of the orbits is intact. SKULL: The calvaria is intact. No evidence of skull fracture. CONCLUSION: 1. Stable chronic changes with old lacunar and cortical infarcts in the left cerebellar hemisphere. 2. Otherwise negative. Madan Abrams MD on April 07, 2017 at 14:29 Board Certified Radiologist. This report was verified electronically.
[2017-04-07] MEDS ORDERED: ONDANSETRON HCL 4 MG/2 ML VIAL IV PUSH ONE (15:15)
--- NOTE | 2017-04-07 15:22 | PD.VS.CON ---
History of Present Illness Chief Complaint: L UE pain Consult Requested by: ED History of Present Illness 51 yo female who is well known to me. In Mar 2014, she underwent L carotid- brachial bypass at [facility] that failed in the short perioperative period and then a graft thrombectomy with jump graft to the ulnar artery 3 days later. This was ultimately unsuccessful and the ultimate management was medical with anticoagulation alone. The patient has kept this up until a few months ago at which time it had to be stopped because of what sounds like dysfunctional uterine bleeding. She was seen in my clinic on 03/21 and found to have severe occlusive disease by WBIs but finger pressures of 80 and no motor dysfunction. Her pain was stable and she had no motor dysfunction. She presents for worsening neck pain. No motor dysfunction. Past/Family/Social History Past Medical History L UE ischemia UC OA DJD Past Surgical History tonsillectomy L UE bypass as above Social History tobacco and cannabis Family History NC Home Medications Active Scripts Nitrofurantoin Monohydrate Macrocrystals (Macrobid) 100 Mg Cap, 100 MG PO BID for Infection for 7 Days, CAP 0 Refills Prov:GianniMuna 12/26/16 Reported Medications Trazodone (Trazodone) 100 Mg Tablet, 100 MG PO HS for Control Depression, #30 TAB 0 Refills 12/26/16 Temazepam (Temazepam) 15 Mg Cap, 15 MG PO HS Y for INSOMNIA, #30 CAP 0 Refills 12/26/16 Omeprazole (Omeprazole) 20 Mg Tab, 20 MG PO DAILY, #30 TAB 0 Refills 12/26/16 Cholecalciferol (Vitamin D-[address]) 1,000 Unit Tab, 1000 UNITS PO DAILY for Nutritional Supplement, #1 BOTTLE 0 Refills 12/26/16 Atorvastatin (Atorvastatin) 20 Mg Tab, 20 MG PO HS for Cholesterol Management, # 30 TAB 0 Refills 12/26/16 Sucralfate (Sucralfate) 1 Gm Tab, 1 GM PO QID for Duodenal ulcer, #120 TAB 0 Refills on empty stomach 12/26/16 Potassium Chloride ER (Potassium Chloride ER) 20 Meq Tab, 20 MEQ PO DAILY for Electrolyte Replacement, #30 TAB 0 Refills 12/26/16 Gabapentin (Gabapentin) 300 Mg Cap, 300 MG PO QID, #90 CAP 0 Refills 12/26/16 Tizanidine (Tizanidine) 4 Mg Tab, 4 MG PO QID for Muscle Spasm, TAB 0 Refills 12/26/16 Trimethobenzamide (Tigan) 300 Mg Cap, 300 MG PO TID Y for NAUSEA OR VOMITING, CAP 0 Refills 12/26/16 Aspirin (Aspirin Low Dose) 81 Mg Chew, 81 MG PO DAILY, TAB 0 Refills 12/26/16 Coded Allergies: penicillin G (Unverified Allergy, Unknown, RASH, 01/28/17) Review of Systems Constitutional: COMPLAINS OF: Fatigue, DENIES: Fever, Chills Cardiovascular: DENIES: Chest pain Musculoskeletal: COMPLAINS OF: Joint pain, Neck pain Physical Exam Vitals/I&O Date Time Temp Pulse Resp B/P (MAP) Pulse Ox O2 Delivery O2 Flow Rate FiO2 04/07/17 12:43 98 04/07/17 12:43 96 22 98 Room Air 04/07/17 12:43 98 Room Air 04/07/17 11:27 97.7 104 20 166/88 (114) 97 Neuro: appropriately anxious, BROWN HEENT: NC/AT; trachea midline Neck: no JVD; healed L neck incision Heart: reg rate, no M Lungs: clear B Vascular: nonpable L UE pulses healed brachial artery incision Extremities: warm perfused, good B UE strength Laboratory Tests Test 04/07/17 12:00 White Blood Count 10.9 Red Blood Count 4.80 Hemoglobin 14.8 Hematocrit 43.4 Mean Corpuscular Volume 90.4 Mean Corpuscular Hemoglobin 30.8 Mean Corpuscular Hemoglobin Concent 34.1 Red Cell Distribution Width 13.4 Platelet Count 334 Mean Platelet Volume 8.6 Neutrophils (%) (Auto) 48.2 Lymphocytes (%) (Auto) 46.7 Monocytes (%) (Auto) 2.7 Eosinophils (%) (Auto) 1.3 Basophils (%) (Auto) 1.1 Neutrophils # (Auto) 5.3 Lymphocytes # (Auto) 5.1 Monocytes # (Auto) 0.3 Eosinophils # (Auto) 0.1 Basophils # (Auto) 0.1 CBC Comment DIFF FINAL Differential Comment Prothrombin Time 9.7 Prothromb Time International Ratio 0.9 Activated Partial Thromboplast Time 24.8 Blood Urea Nitrogen 6 Creatinine 0.51 Random Glucose 92 Calcium Level 8.9 Magnesium Level 2.3 Sodium Level 141 Potassium Level 4.7 Chloride Level 108 Carbon Dioxide Level 25.5 Anion Gap 8 Estimat Glomerular Filtration Rate 127 Total Creatine Kinase 161 Creatine Kinase MB 0.8 Troponin I LESS THAN 0.02 Last 48 hours Impressions Chest X-Ray 04/07/17 1143 Signed Impressions: Service Date/Time: Friday, April 07, 2017 11:54 - CONCLUSION: No acute disease. Huseyin Loja MD Head CT 04/07/17 0000 Signed Impressions: Service Date/Time: Friday, April 07, 2017 14:05 - CONCLUSION: 1. Stable chronic changes with old lacunar and cortical infarcts in the left cerebellar hemisphere. 2. Otherwise negative. Madan Abrams MD Assessment and Plan Plan likely pain exacerbation without acute vascular compromise Rec CTA chest neck and L UE Hand is warm and motor intact. Prior WBI 0.5 Suspect outpatient f/u but will reassess after CTA Moustapha Méndez MD Apr 07, 2017 15:22
--- NOTE | 2017-04-07 15:47 | RADRPT ---
EXAM DATE/TIME: 04/07/2017 14:17 [facility] COMPARISON: CTA CAROTID ARTERIES W 3D RECON, March 29, 2014, 16:55. INDICATIONS : Left arm pain and weakness. IV CONTRAST: 84 cc Omnipaque 350 (iohexol) IV ; Cumulative dose for multiple exams. RADIATION DOSE: 2.37 CTDIvol (mGy) ; Combined studies MEDICAL HISTORY : deep vein thrombosis SURGICAL HISTORY : left arm surgery ENCOUNTER: Initial ACUITY: 1 day PAIN SCALE: 5/10 LOCATION: Left arm Elevated flow velocities and ICA/CCA ratios have been found to correlate with increased degrees of vessel stenosis, calculated as percentage of diameter relative to a normal segment of distal ICA/CCA. TECHNIQUE: Volumetric scanning was performed using a multirow detector CT scanner. The data was post processed with a variety of visualization algorithms including full-volume maximum intensity projection, multip lanar sliding thin-slab reformation, curved-planar reformation, and surface-rendering techniques. Us ing automated exposure control and adjustment of the mA and/or kV according to patient size, radiatio n dose was kept as low as reasonably achievable to obtain optimal diagnostic quality images. DICOM f ormat image data is available electronically for review and comparison. FINDINGS: AORTIC ARCH: There is a three-vessel origin of the great vessels from the aorta. Left subclavian artery again appe ars occluded. This appears to be secondary to extrinsic compression from a cervical rib. There is mur al thrombus in the left subclavian origin proximal to the occlusion. Overall appearance is not signif icantly changed. RIGHT CAROTID: The common carotid artery is intact. The carotid bulb has a normal configuration without ulceration o r narrowing. The internal carotid artery lumen is smooth without stenosis. The external carotid vignesh ry is occluded or critically stenosed at the origin but reconstitutes very proximally. This is unchan ged from prior exam. LEFT CAROTID: New focal saccular aneurysm for ulcerated plaque in the proximal left common carotid artery. The bustos tid bulb has a normal configuration without ulceration or narrowing. The internal carotid artery lum en is smooth without stenosis. The external carotid artery is intact. VERTEBRALS: The vertebral arteries have a symmetric diameter. No stenotic lesions are seen. CONCLUSION: 1. 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 Patent left vertebral artery with mild residual mural thro mbus in the proximal left subclavian artery. 2. New focal saccular aneurysm versus ulcerated plaque in the proximal left common carotid artery. 3. Redemonstration of critical stenosis versus focal occlusion of the right external carotid origin. 4. No hemodynamically significant internal carotid stenosis. Gregorio Blackwood MD on April 07, 2017 at 15:13 Board Certified Radiologist. This report was verified electronically.
--- NOTE | 2017-04-07 16:06 | RADRPT ---
EXAM DATE/TIME: 04/07/2017 14:26 [facility] COMPARISON: CTA UPPER EXTREMITY LEFT W 3D RECON, March 29, 2014, 16:55. INDICATIONS : Left arm pain and weakness. IV CONTRAST: 84 cc Omnipaque 350 (iohexol) IV ; Cumulative dose for multiple exams. RADIATION DOSE: 2.37 CTDIvol (mGy) ; Combined studies MEDICAL HISTORY : deep vein thrombosis SURGICAL HISTORY : left arm surgery ENCOUNTER: Initial ACUITY: 1 day PAIN SCALE: 5/10 LOCATION: Left arm TECHNIQUE: Volumetric scanning was performed using a multirow detector CT scanner. Using automated exposure cont rol and adjustment of the mA and/or kV according to patient size, radiation dose was kept as low as r easonably achievable to obtain optimal diagnostic quality images. The data was post processed with a variety of visualization algorithms including full-volume maximum intensity projection, multiplanar sliding thin-slab reformation, curved-planar reformation, and surface-rendering techniques. Using au tomated exposure control and adjustment of the mA and/or kV according to patient size, radiation dose was kept as low as reasonably achievable to obtain optimal diagnostic quality images. DICOM format image data is available electronically for review and comparison. FINDINGS: The appearance is stable from the prior exam. Classic appearance of thoracic outlet syndrome observed . 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 There is eventual reconstitution of the distal brachial artery. This is sm all in caliber secondary to the proximal occlusion. There is chronic occlusion of the distal brachial artery just proximal to the antecubital fossa and collaterals reconstitute the ulnar artery, interos seous, and radial arteries. The dominant flow to the hand is via the ulnar artery. CONCLUSION: 1. 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 There is reconstitution of the brachial artery that r eoccludes distally. Runoff to the hand is predominantly via the ulnar artery. Tarik Keller Jr., MD on April 07, 2017 at 15:53 Board Certified Radiologist. This report was verified electronically.
[2017-04-07] MEDS ORDERED: LORazepam 2 MG/ML VIAL IV PUSH ONE (16:15)
[2017-04-07] MEDS ORDERED: ALPR.5 PO (16:43)
[2017-04-07] MEDS ORDERED: PROM25TA10 PO (16:43)
[2017-04-07] MEDS ORDERED: HYDR-3533 PO (16:43)
--- NOTE | 2017-04-08 16:07 | EKG ---
Date Performed: 04/07/2017 Time Performed: 12:25:17 PTAGE: 51 years EKG: SINUS TACHYCARDIA POSSIBLE LEFT ATRIAL ENLARGEMENT ABNORMAL RHYTHM ECG Compared to prior tr acing no significant change PREVIOUS TRACING : 09/27/2014 13.11 DOCTOR: Gabe Hernandez Interpretating Date/Time 04/08/2017 16:05:30
== END 2017-04-07 17:25 | disposition home or self-care (01) ==
LOC: NEPC 11:17
DX: M79.602 Pain in left arm (principal); R20.0 Anesthesia of skin; G54.0 Brachial plexus disorders; R51 Headache; J45.909 Unspecified asthma, uncomplicated; R94.31 Abnormal electrocardiogram [ECG] [EKG]; Z79.01 Long term (current) use of anticoagulants
CPT/HCPCS: 70450; 70498; 71010; 73206; 80048; 82550; 82552; 83735; 84484; 85025; 85610; 85730; 93005; 96374; 96375; 96376; 99285; J2270; J2405; Q9967

== ENCOUNTER 2017-10-01 10:26 | Emergency (ER) | payer BC, OTHER ==
[~2017-10-01 10:26] MED LIST changes: +ALPR.5 PO; -ASPI81CH37 PO; +ASPI81CH6 PO; +HYDR-3533 PO; -OMEP20TA PO; +OMEP20TA93 PO; +PROM25TA10 PO; +TRAZ100T10 PO; -TRAZ100T6 PO
[2017-10-01 10:34] VITALS: BP 166/100; PULSE 107; RESP 20; TEMP 99; O2SAT 94
[2017-10-01] MEDS ORDERED: SODIUM CHLOR 0.9% 1000 ML INJ 1,000 ML IV SCH (11:00)
[2017-10-01] MEDS ORDERED: LORazepam 2 MG/ML VIAL IV PUSH PRN (11:00)
--- NOTE | 2017-10-01 11:04 | PD ---
HPI Chief Complaint: Numbness/Tingling Time Seen by Provider: 10:43 Travel History International Travel<30 days: No Contact w/Intl Traveler<30days: No Traveled to known affect area: No History of Present Illness HPI 51-year-old female complains of left facial numbness, left and left leg numbness. Patient states that the symptoms started last night. Patient states that the numbness started last night and has been persistent since then. Patient states that she has aching headache. Patient denies any visual change. Patient denies any neck pain. Patient denies any chest pain or shortness of breath. Patient denies abdominal pain. Patient denies any focal weakness to the extremity. Patient denies any recent head injury. Patient status post left carotid brachial bypass surgery in 2013. Patient had complication post surgery. Patient was put on Xarelto. Patient states that throughout the was stopped because of excessive dysfunctional uterine bleeding. PFSH Past Medical History Hx Anticoagulant Therapy: No (XARELTO) Arthritis: Yes (Hips and lower back ) Asthma: Yes Autoimmune Disease: No Blood Disorders: No Anxiety: Yes Depression: No Heart Rhythm Problems: No Cancer: No Cardiovascular Problems: Yes High Cholesterol: Yes Chemotherapy: No Chest Pain: No Congestive Heart Failure: No COPD: No Cerebrovascular Accident: Yes Diabetes: No Diminished Hearing: No Deep Vein Thrombosis: Yes Endocrine: No Gastrointestinal Disorders: Yes GERD: No Glaucoma: No Genitourinary: No Headaches: No Hepatitis: No Hiatal Hernia: No Hypertension: No Immune Disorder: No Implanted Vascular Access Dvce: No Kidney Stones: No Musculoskeletal: Yes (Lump in left wrist in October 2013) Neurologic: Yes Psychiatric: Yes Reproductive: No Respiratory: Yes Immunizations Current: No Migraines: No Myocardial Infarction: No Radiation Therapy: No Renal Failure: No Seizures: Yes (Suffered childhood epilepsy) Sickle Cell Disease: No Sleep Apnea: No Thyroid Disease: No Ulcer: Yes (ulcerative Colitis /GASTROPARESIS) Tetanus Vaccination: > 5 Years ?: Not Menopausal: Yes : 4 Para: 3 Miscarriage: 1 : 0 Dilation and Curettage (D&C): Yes Past Surgical History Abdominal Surgery: No AICD: No Arteriovenous Shunt: No Cardiac Surgery: No Coronary Artery Bypass Graft: Yes (x 2 ) Ear Surgery: No Endocrine Surgery: No Eye Surgery: No Genitourinary Surgery: No Gynecologic Surgery: No Hysterectomy: No Insulin Pump: No Joint Replacement: No Neurologic Surgery: No Oral Surgery: Yes (Complete teeth removal in 2007) Pacemaker: No Thoracic Surgery: No Tonsillectomy: Yes Other Surgery: Yes (lt arm maria alejandra bypass) Social History Alcohol Use: No (PT DENIES) Tobacco Use: Yes (1/2 CIG A DAY) Substance Use: No (PT DENIES) Allergies-Medications (Allergen,Severity, Reaction): Coded Allergies: penicillin G (Unverified Allergy, Unknown, RASH, 01/28/17) Reported Meds & Prescriptions Reported Meds & Active Scripts Active Phenergan (Promethazine HCl) 25 Mg Tablet 25 Mg PO Q6H PRN Xanax (Alprazolam) 0.5 Mg Tab 0.5 Mg PO Q8H PRN Reported Tramadol (Tramadol HCl) Unknown Strength Tab 1 Tab PO Q4H PRN [Nascent Iodine] 1 Tab PO DAILY Amitriptyline (Amitriptyline HCl) 25 Mg Tab 25 Mg PO HS Levothyroxine (Levothyroxine Sodium) 75 Mcg Tab 75 Mcg PO DAILY Lipitor (Atorvastatin Calcium) 40 Mg Tab 40 Mg PO HS Vitamin D-[address] (Cholecalciferol) 1,000 Unit Tab 1,000 Units PO DAILY Sucralfate 1 Gm Tab 1 Gm PO QID on empty stomach Review of Systems General / Constitutional: No: Fever Eyes: No: Visual changes HENT: Positive: Headaches Cardiovascular: No: Chest Pain or Discomfort Respiratory: No: Shortness of Breath Gastrointestinal: No: Abdominal Pain Genitourinary: No: Dysuria Musculoskeletal: No: Pain Skin: No Rash Neurologic: Positive: Paresthesia, No: Weakness Psychiatric: No: Depression Endocrine: No: Polydipsia Hematologic/Lymphatic: No: Easy Bruising Physical Exam Narrative GENERAL: Well-nourished, well-developed patient. SKIN: Focused skin assessment warm/dry. HEAD: Normocephalic. EYES: No scleral icterus. No injection or drainage. NECK: Supple, trachea midline. No JVD or lymphadenopathy. CARDIOVASCULAR: Regular rate and rhythm without murmurs, gallops, or rubs. RESPIRATORY: Breath sounds equal bilaterally. No accessory muscle use. GASTROINTESTINAL: Abdomen soft, non-tender, nondistended. MUSCULOSKELETAL: No cyanosis, or edema. BACK: Nontender without obvious deformity. No CVA tenderness. Neurologic exam: Patient is awake and alert oriented 3. Patient had decrease in light sensation left side of face, left arm and left leg. Patient can moves all extremity well. Motor function intact. Deep tendon reflexes 1+ and equal. Negative Babinski. Data Data Last Documented VS Vital Signs Date Time Temp Pulse Resp B/P (MAP) Pulse Ox O2 Delivery O2 Flow Rate FiO2 10/01/17 12:18 97 Room Air 10/01/17 10:34 99.0 107 20 166/100 (122) Orders Orders Electrocardiogram (10/01/17 10:51) Complete Blood Count With Diff (10/01/17 10:51) Comprehensive Metabolic Panel (10/01/17 10:51) Prothrombin Time / Inr (Pt) (10/01/17 10:51) Act Partial Throm Time (Ptt) (10/01/17 10:51) Thyroid Stimulating Hormone (10/01/17 10:51) Chest, Single Ap (10/01/17 10:51) Iv Access Insert/Monitor (10/01/17 10:51) Ecg Monitoring (10/01/17 10:51) Oximetry (10/01/17 10:51) Lorazepam Inj (Ativan Inj) (10/01/17 11:00) Sodium Chlor 0.9% 1000 Ml Inj (Ns 1000 M (10/01/17 11:00) Mri Brain W/O Contrast (10/01/17 11:52) Mra Brain W/O Contrast (Cow) (10/01/17 11:52) Mra Carotids W Contrast (10/01/17 11:52) Ed Discharge Order (10/01/17 13:11) Labs Laboratory Tests Test 10/01/17 11:10 White Blood Count 15.1 TH/MM3 Red Blood Count 4.93 MIL/MM3 Hemoglobin 15.1 GM/DL Hematocrit 44.5 % Mean Corpuscular Volume 90.4 FL Mean Corpuscular Hemoglobin 30.6 PG Mean Corpuscular Hemoglobin Concent 33.9 % Red Cell Distribution Width 13.1 % Platelet Count 336 TH/MM3 Mean Platelet Volume 8.0 FL Neutrophils (%) (Auto) 67.0 % Lymphocytes (%) (Auto) 27.0 % Monocytes (%) (Auto) 4.1 % Eosinophils (%) (Auto) 1.3 % Basophils (%) (Auto) 0.6 % Neutrophils # (Auto) 10.2 TH/MM3 Lymphocytes # (Auto) 4.1 TH/MM3 Monocytes # (Auto) 0.6 TH/MM3 Eosinophils # (Auto) 0.2 TH/MM3 Basophils # (Auto) 0.1 TH/MM3 CBC Comment DIFF FINAL Differential Comment Prothrombin Time 10.2 SEC Prothromb Time International Ratio 1.0 RATIO Activated Partial Thromboplast Time 25.2 SEC Blood Urea Nitrogen 7 MG/DL Creatinine 0.75 MG/DL Random Glucose 101 MG/DL Total Protein 7.9 GM/DL Albumin 3.8 GM/DL Calcium Level 9.0 MG/DL Alkaline Phosphatase 121 U/L Aspartate Amino Transf (AST/SGOT) 14 U/L Alanine Aminotransferase (ALT/SGPT) 17 U/L Total Bilirubin 0.4 MG/DL Sodium Level 140 MEQ/L Potassium Level 3.7 MEQ/L Chloride Level 107 MEQ/L Carbon Dioxide Level 23.1 MEQ/L Anion Gap 10 MEQ/L Estimat Glomerular Filtration Rate 81 ML/MIN Thyroid Stimulating Hormone 3rd Gen 1.500 uIU/ML MDM Medical Decision Making Medical Screen Exam Complete: Yes Emergency Medical Condition: Yes Interpretation(s) Last Impressions Chest X-Ray 10/01/17 1051 Signed Impressions: Service Date/Time: Sunday, October 01, 2017 11:15 - CONCLUSION: 1. No acute abnormality or significant interval change. Gregorio Blackwood MD 1305 p.m. CBC WBC 15.1. Normal differential. CMP within normal limits. Differential Diagnosis Differential diagnosis including neuralgia, neuropathy, TIA, CVA. Narrative Course 51-year-old female with left-sided facial numbness and left arm left leg numbness since last night. History of CVA in the past. 1306 p.m. Patient wants to leave AMA. Patient wants to be discharged. Diagnosis Primary Impression: Left sided numbness Additional Impression: Cephalgia Qualified Codes: R51 - Headache Patient Instructions: General Instructions Additional Instructions: Advised patient continue with medications as directed. Follow-up with local physician. Return if she desired to be worked up for her numbness. Med/Other Pt SpecificInfo: No Change to Meds Disposition: 01 DISCHARGE HOME Condition: Stable Torsten Franoc MD Oct 01, 2017 11:04
[2017-10-01] MEDS ORDERED: AMIT25TA9 PO (11:17)
[2017-10-01] MEDS ORDERED: LEVO75TA3 PO (11:17)
[2017-10-01] MEDS ORDERED: LIPI40TA PO (11:17)
[2017-10-01] MEDS ORDERED: NASCENT IODINE PO (11:21)
[2017-10-01] MEDS ORDERED: TRAM50TA PO (11:21)
[2017-10-01 11:31] LABS: AUTOMATED NEUTROPHIL # 10.2 TH/MM3 (1.8-7.7); BASOPHIL # 0.1 TH/MM3 (0-0.2); BASOPHIL % 0.6 % (0.0-2.0); EOSINOPHIL # 0.2 TH/MM3 (0-0.4); EOSINOPHIL % 1.3 % (0.0-4.0); HEMATOCRIT 44.5 % (35.0-46.0); HEMOGLOBIN 15.1 GM/DL (11.6-15.3); LYMPHOCYTE # 4.1 TH/MM3 (1.0-4.8); MEAN CELL VOLUME 90.4 FL (80.0-100.0); MEAN CORPUSCULAR HEMOGLOBIN 30.6 PG (27.0-34.0); MEAN CORPUSCULAR HGB CONC 33.9 % (32.0-36.0); MONO % 4.1 % (0.0-8.0); MONOCYTE # 0.6 TH/MM3 (0-0.9); PLATELET COUNT 336 TH/MM3 (150-450); RED BLOOD COUNT 4.93 MIL/MM3 (4.00-5.30); RED CELL DISTRIBUTION WIDTH 13.1 % (11.6-17.2); WHITE BLOOD COUNT 15.1 TH/MM3 (4.0-11.0)
[2017-10-01 11:39] LABS: PROTHROMBIN TIME - PATIENT 10.2 SEC (9.8-11.6)
[2017-10-01 11:58] LABS: ALBUMIN 3.8 GM/DL (3.4-5.0); AST (GOT) 14 U/L (15-37); BICARBONATE 23.1 MEQ/L (21.0-32.0); BLOOD UREA NITROGEN 7 MG/DL (7-18); CHLORIDE 107 MEQ/L (98-107); CREATININE 0.75 MG/DL (0.50-1.00); GLOMERULAR FILTRATION RATE 81 ML/MIN (>89); GLUCOSE,RANDOM 101 MG/DL (74-106); SODIUM (NA) 140 MEQ/L (136-145)
[2017-10-01 11:59] LABS: ALT (GPT) 17 U/L (10-53)
--- NOTE | 2017-10-01 12:04 | RADRPT ---
EXAM DATE/TIME: 10/01/2017 11:15 [facility] COMPARISON: CHEST SINGLE AP, April 07, 2017, 11:54. INDICATIONS : Pressure under right breast and shortness of breath. MEDICAL HISTORY : deep vein thrombosis SURGICAL HISTORY : None. ENCOUNTER: Initial ACUITY: 1 day PAIN SCORE: 6/10 LOCATION: Right chest FINDINGS: No significant new focal pleural or parenchymal opacities. Cardiomediastinal contours are within norm al limits. Bony thorax is intact. CONCLUSION: 1. No acute abnormality or significant interval change. Gregorio Blackwood MD on October 01, 2017 at 12:01 Board Certified Radiologist. This report was verified electronically.
[2017-10-01 12:09] LABS: ALKALINE PHOSPHATASE 121 U/L (45-117); TOTAL BILIRUBIN ADULT 0.4 MG/DL (0.2-1.0); TOTAL PROTEIN 7.9 GM/DL (6.4-8.2)
[2017-10-01 12:18] VITALS: O2SAT 97
[2017-10-01 12:30] VITALS: BP 146/90; PULSE 95; RESP 20; O2SAT 97
--- NOTE | 2017-10-02 13:35 | EKG ---
Date Performed: 10/01/2017 Time Performed: 12:15:16 PTAGE: 51 years EKG: SINUS TACHYCARDIA ABNORMAL RHYTHM ECG Since the PREVIOUS TRACING , no significant change noted PREVIOUS TRACIN04/07/2017 12.25 DOCTOR: Kaleb Gonzáles Interpretating Date/Time 10/02/2017 13:32:57
== END 2017-10-01 13:33 | disposition home or self-care (01) ==
LOC: NEPC 10:26
DX: R20.0 Anesthesia of skin (principal); R51 Headache; R00.0 Tachycardia, unspecified; F17.210 Nicotine dependence, cigarettes, uncomplicated; E78.00 Pure hypercholesterolemia, unspecified; Z86.718 Personal history of other venous thrombosis and embolism
CPT/HCPCS: 71045; 80053; 84443; 85025; 85610; 85730; 93005; 96374; 99284; J2060; J7030